=== PATIENT | male | born 1940 | race Caucasian/White ===

== ENCOUNTER → 2018-11-10 | Outpatient (CLI) | payer OTHER, BC ==
[~2018-11-10] MED LIST: AMLODIPINE-BEN1 EAC2 PO; AUGMENTIN 875875 MG PO; DEPO-TESTO100 MG/1 M INJ; GEMFIBROZIL 60600 MG PO; IBUPROFEN 200200 M1 PO
== END ==
LOC: NUC 11:24
DX: I10 Essential (primary) hypertension (principal); E29.1 Testicular hypofunction; Z79.899 Other long term (current) drug therapy

== ENCOUNTER 2020-02-21 10:42 | Emergency (ER) | payer OTHER, BC ==
[~2020-02-21] VITALS: Ht 180.3 cm; Wt 90.7 kg
[2020-02-21 12:25] LABS: BASOPHILS 0.4 % (0.0-2.0); EOSINOPHILS 0.1 % (0.0-3.0); HEMATOCRIT 52.1 % (42.0-52.0); HEMOGLOBIN 17.2 gm/dL (14.0-18.0); LYMPHOCYTES 3.7 % (24.0-44.0); MCHC 33.1 g/dL (28.0-37.0); MCV 93.7 fL (80.0-100.0); POLYS 89.8 % (36.0-66.0); RBC 5.56 mil/uL (4.50-6.00); RDW 14.8 % (10.5-14.5); WBC 13.3 thou/uL (4.0-11.0)
[2020-02-21 12:26] LABS: URINE BILIRUBIN NEGATIVE (Negative); URINE BLOOD NEGATIVE (Negative); URINE CLARITY CLEAR; URINE COLOR YELLOW; URINE GLUCOSE-RANDOM* NEGATIVE (Negative); URINE KETONES NEGATIVE (Negative); URINE LEUKOCYTES-REFLEX NEGATIVE (Negative); URINE NITRITE-REFLEX NEGATIVE (Negative); URINE PROTEIN (DIPSTICK) NEGATIVE (Negative)
[2020-02-21 12:30] LABS: CALCIUM 9.1 mg/dL (8.5-10.1); CREATININE 1.3 mg/dL (0.7-1.3); POTASSIUM 3.8 mmol/L (3.5-5.1)
[2020-02-21 12:36] LABS: ALBUMIN 3.7 g/dL (3.4-5.0); TOTAL BILIRUBIN 0.8 mg/dL (0.2-1.0); TOTAL PROTEIN 6.4 g/dL (6.4-8.2)
[2020-02-21 13:52] LABS: PLATELET COUNT 143 thou/uL (150-400)
[2020-02-21 14:14] VITALS: BP 105/64
== END 2020-02-21 14:14 | disposition home or self-care (01) ==
LOC: ER 10:42
PROVIDERS: Nurse Practitioner Family
DX: R50.9 Fever, unspecified (principal); Z20.828 Contact with and (suspected) exposure to other viral communicable diseases; I10 Essential (primary) hypertension; Z85.6 Personal history of leukemia; Z98.890 Other specified postprocedural states; Z85.21 Personal history of malignant neoplasm of larynx; Z90.49 Acquired absence of other specified parts of digestive tract; Z79.899 Other long term (current) drug therapy; Z79.2 Long term (current) use of antibiotics

== ENCOUNTER 2021-10-12 12:28 | Emergency (ER) | payer OTHER, BC ==
[~2021-10-12] VITALS: Ht 175.3 cm; Wt 81.7 kg
[2021-10-12 12:30] VITALS: BP 124/70
[2021-10-12] MEDS ORDERED: IMBRUVICA140 MG PO (12:36)
== END 2021-10-12 13:27 | disposition home or self-care (01) ==
LOC: ER 12:28
DX: H44.132 Sympathetic uveitis, left eye (principal); R09.82 Postnasal drip; I10 Essential (primary) hypertension; Z90.49 Acquired absence of other specified parts of digestive tract; Z79.899 Other long term (current) drug therapy